=== PATIENT | male | born 1955 | race Caucasian/White ===

== ENCOUNTER 2017-09-14 10:39 | Day surgery (SDC) | payer OTHER ==
[~2017-09-14 10:39] MED LIST: ATROPINE 1 MG/10 ML SYRINGE IV; DIPHENHYDRAMINE 50 MG INJ IV; EPHEDrine SULFATE 50 MG/5 ML SYG IV; FENTAnyl 50 MCG/ML VIAL IV; HYDROmorphONE (0.2 MG/ML) 10ML SYG IV; LABETALOL HCL 20MG INJ IV; MEPERIDINE 25 MG INJ IV; MIDAZOLAM 1 MG/ML 2 ML INJ IV; ONDANSETRON 4 MG INJ IV; OXYCODONE/ACETAMINOPHEN (5/325) TAB PO; hydrALAzine 20 MG INJ IV; morphine (1 MG/ML) 10ML SYRINGE IV
[2017-09-14] MEDS ORDERED: CEFAZOLIN 2 GM/50 ML (PMX) 50 ML IVPB (11:00)
[2017-09-14] MEDS ORDERED: FENTAnyl 50 MCG/ML VIAL (11:32)
[2017-09-14] MEDS ORDERED: PROPOFOL 20 ML (11:33)
[2017-09-14] MEDS ORDERED: ONDANSETRON 4 MG INJ (11:37)
[2017-09-14] MEDS ORDERED: DEXAMETHASONE 4 MG/ML 1 ML INJ (11:37)
[2017-09-14] MEDS ORDERED: SUCCINYLCHOLINE CHLORIDE 100 MG/5 ML SYG IV (11:37)
[2017-09-14] MEDS ORDERED: HYDROCODONE/APAP (5/325) TAB PO (14:00)
[2017-09-14] MEDS: OXYCODONE/ACETAMINOPHEN (5/325) TAB PO (15:04)
== END 2017-09-14 15:20 | disposition home or self-care (01) ==
LOC: SDS 10:39
DX: N32.89 Other specified disorders of bladder (principal)
CPT/HCPCS: 52204; 87086; 88104; 88305

== ENCOUNTER 2018-03-21 08:08 | Day surgery (SDC) | payer OTHER ==
[~2018-03-21 08:08] MED LIST changes: -ATROPINE 1 MG/10 ML SYRINGE IV; +CEFAZOLIN 1 GM INJ; -DIPHENHYDRAMINE 50 MG INJ IV; -EPHEDrine SULFATE 50 MG/5 ML SYG IV; -FENTAnyl 50 MCG/ML VIAL IV; -HYDROmorphONE (0.2 MG/ML) 10ML SYG IV; -LABETALOL HCL 20MG INJ IV; -MEPERIDINE 25 MG INJ IV; -MIDAZOLAM 1 MG/ML 2 ML INJ IV; -ONDANSETRON 4 MG INJ IV; -OXYCODONE/ACETAMINOPHEN (5/325) TAB PO; -hydrALAzine 20 MG INJ IV; -morphine (1 MG/ML) 10ML SYRINGE IV
[2018-03-21] MEDS ORDERED: OXYCODONE/ACETAMINOPHEN (5/325) TAB PO ×2 (10:00)
[2018-03-21] MEDS ORDERED: DIPHENHYDRAMINE 50 MG INJ IV (10:00)
[2018-03-21] MEDS ORDERED: ONDANSETRON 4 MG INJ IV (10:00)
[2018-03-21] MEDS ORDERED: HYDROmorphONE 1 MG/5 ML IV SYRINGE IV (10:00)
[2018-03-21] MEDS ORDERED: PROPOFOL 20 ML ×2 (10:32→11:57)
[2018-03-21] MEDS ORDERED: METOCLOPRAMIDE 10 MG INJ (10:33)
[2018-03-21] MEDS ORDERED: ONDANSETRON 4 MG INJ (10:33)
[2018-03-21] MEDS ORDERED: MIDAZOLAM 1 MG/ML 2 ML INJ (10:33)
[2018-03-21] MEDS ORDERED: FENTAnyl 50 MCG/ML VIAL (11:04)
[2018-03-21] MEDS: EPINEPHrine 1 MG/ML 30 ML INJ (11:24)
[2018-03-21] MEDS: morphine SULFATE/PF (10 MG/10 ML) INJ (11:24)
[2018-03-21] MEDS ORDERED: HYDROCODONE/APAP (5/325) TAB PO ×2 (12:30)
[2018-03-21] MEDS: HYDROmorphONE 1 MG/5 ML IV SYRINGE IV ×4 (12:40→13:15)
[2018-03-21] MEDS: MEPERIDINE 25 MG INJ IV (12:41)
== END 2018-03-21 15:00 | disposition home or self-care (01) ==
LOC: SDS 08:08
DX: S83.271D Complex tear of lateral meniscus, current injury, right knee, subsequent encounter (principal); S83.241D Other tear of medial meniscus, current injury, right knee, subsequent encounter; X58.XXXD Exposure to other specified factors, subsequent encounter; M94.261 Chondromalacia, right knee; M65.861 Other synovitis and tenosynovitis, right lower leg
CPT/HCPCS: 29880